=== PATIENT | male | born 1985 | race Two or more races ===

== ENCOUNTER 2017-12-04 03:43 | Emergency (ER) | payer SELFPAY ==
[~2017-12-04] VITALS: Ht 165.1 cm; Wt 87.2 kg
[2017-12-04 03:45] VITALS: BP 99/65
== END 2017-12-04 04:57 | disposition home or self-care (01) ==
LOC: ED 04:51
DX: J20.9 Acute bronchitis, unspecified (principal)
CPT/HCPCS: 71045; 93005; 99284

== ENCOUNTER 2018-02-09 03:16 | Emergency (ER) | payer SELFPAY ==
[~2018-02-09] VITALS: Ht 162.6 cm; Wt 92.4 kg
[2018-02-09 03:18] VITALS: BP 110/53
[2018-02-09] MEDS ORDERED: ONDANSETRON ODT 4 MG ONE (04:21)
[2018-02-09] MEDS ORDERED: ONDANSETRON ODT 4 MG PO ONE (04:30)
[2018-02-09] MEDS ORDERED: NITROGLYCERIN OINT 2%, 1GM TP ONE (04:55)
[2018-02-09] MEDS ORDERED: ASPIRIN 81 MG TABLET CHEW ONE (04:55)
[2018-02-09 04:57] LABS: BASOPHILS # (AUTO) 0.05 x10^3/uL (0-0.1); BASOPHILS % (AUTO) 1 % (0-1); EOSINOPHILS # (AUTO) 0.14 x10^3/uL (0-0.4); EOSINOPHILS % (AUTO) 2 % (1-7); LYMPHOCYTES # (AUTO) 2.23 x10^3/uL (1-3.4); LYMPHOCYTES % (AUTO) 26 % (22-44); MD NO; MEAN CORPUSCULAR HEMOGLOBIN 31.2 pg (27.5-34.5); MEAN CORPUSCULAR HGB CONC 34.5 g/dL (33.2-36.2); MEAN CORPUSCULAR VOLUME 90.2 fL (81-97); MEAN PLATELET VOLUME 7.4 fL (7.4-10.4); MONOCYTES # (AUTO) 0.78 x10^3/uL (0.2-0.8); MONOCYTES % (AUTO) 9 % (2-9); NEUTROPHILS # (AUTO) 5.34 x10^3/uL (1.8-6.8); NEUTROPHILS % (AUTO) 63 % (42-75); PLATELET COUNT 227 x10^3/uL (130-400); RED BLOOD COUNT 4.79 x10^6/uL (4.38-5.82); RED CELL DISTRIBUTION WIDTH 13.1 % (9.4-14.8)
[2018-02-09] MEDS ORDERED: ALBUTEROL SULFATE 2.5 MG/3 ML NPPB ONE (05:00)
[2018-02-09 05:08] LABS: CHLORIDE 105 mmol/L (98-107)
[2018-02-09 05:09] LABS: ALBUMIN 3.5 g/dL (3.4-5.0); ANION GAP 9 mmol/L (5-15); CALCIUM 7.7 mg/dL (8.5-10.1)
[2018-02-09 05:14] LABS: ALANINE AMINOTRANSFERASE 62 U/L (12-78); ALKALINE PHOSPHATASE 82 U/L (45-117); CREATININE 1.09 mg/dL (0.7-1.3); TOTAL PROTEIN 7.3 g/dL (6.4-8.2); TROPONIN I < 0.015 ng/mL (0.000-0.045)
[2018-02-09] MEDS ORDERED: ALBUTEROL SULFATE 2.5 MG/3 ML ONE (05:23)
== END 2018-02-09 05:57 | disposition home or self-care (01) ==
LOC: ED 03:40
DX: B34.9 Viral infection, unspecified (principal); R11.0 Nausea; Z87.09 Personal history of other diseases of the respiratory system
CPT/HCPCS: 36415; 71045; 80053; 84484; 85025; 93005; 94640; 99285; J7613; Q0162

== ENCOUNTER 2018-06-04 17:47 | Emergency (ER) | payer SELFPAY ==
[~2018-06-04] VITALS: Ht 165.1 cm; Wt 87.7 kg
[2018-06-04 18:01] VITALS: BP 119/82
[2018-06-04] MEDS ORDERED: LIDOCAINE-MPF 1%, 5ML ONE (18:24)
[2018-06-04] MEDS ORDERED: DIPH,PERTUSS(ACELL),TET VAC/PF 0.5 ML IM-VACC ONE ×2 (18:30→18:54)
[2018-06-04] MEDS ORDERED: LIDOCAINE-MPF 1%, 5ML INFIL ONE (18:30)
== END 2018-06-04 19:26 | disposition home or self-care (01) ==
LOC: ED 19:12
DX: L02.31 Cutaneous abscess of buttock (principal)
CPT/HCPCS: 10060; 90471; 90715; 99283

== ENCOUNTER 2018-06-06 00:13 | Emergency (ER) | payer SELFPAY ==
[~2018-06-06] VITALS: Ht 165.1 cm; Wt 90.0 kg
--- NOTE | 2018-06-06 00:47 | NUR ---
PT PRESENTED FOR WOUND RECHECK TO RIGHT BUTTOCK ABSCESS, S/P I & D ON SUNDAY. MONITOR APPLIED,SIDERAILS UP X2,CALL LIGHT WITHIN REACH.
[2018-06-06] MEDS ORDERED: SULF1TAB23 PO (00:53)
[2018-06-06] MEDS ORDERED: CEPH-376 PO (00:53)
[2018-06-06] MEDS ORDERED: ACETAMINOPHEN 325 MG TABLET ONE (01:24)
[2018-06-06] MEDS ORDERED: IBUPROFEN 200 MG TABLET ONE (01:25)
[2018-06-06] MEDS ORDERED: LIDOCAINE-MPF 1%, 5ML ONE ×2 (01:25→01:39)
--- NOTE | 2018-06-06 01:29 | NUR ---
PT BMEDICATED BPER MAR
[2018-06-06] MEDS ORDERED: ACETAMINOPHEN 325 MG TABLET PO ONE (01:30)
[2018-06-06] MEDS ORDERED: IBUPROFEN 200 MG TABLET PO ONE (01:30)
[2018-06-06] MEDS ORDERED: LIDOCAINE-MPF 1%, 5ML INFIL ONE (01:30)
--- NOTE | 2018-06-06 01:30 | NUR ---
PT UP TORR WITH STEADY GAIT
--- NOTE | 2018-06-06 01:48 | NUR ---
PA AT PT'S BEDSIDE FOR I&D
[2018-06-06 02:45] VITALS: BP 122/70
== END 2018-06-06 02:46 | disposition home or self-care (01) ==
LOC: ED 00:42
DX: L02.31 Cutaneous abscess of buttock (principal)
CPT/HCPCS: 10060; 99283

== ENCOUNTER 2018-06-08 07:44 | Emergency (ER) | payer SELFPAY ==
[~2018-06-08] VITALS: Ht 165.1 cm; Wt 91.0 kg
[~2018-06-08 07:44] MED LIST: CEPH-376 PO; SULF1TAB23 PO
--- NOTE | 2018-06-08 07:47 | NUR ---
CALLED FOR TRIAGE, NO ANSWER
[2018-06-08 07:53] VITALS: BP 106/70
== END 2018-06-08 08:22 | disposition home or self-care (01) ==
LOC: ED 08:16
DX: Z48.01 Encounter for change or removal of surgical wound dressing (principal)
CPT/HCPCS: 99281